=== PATIENT | female | born 1955 | race Caucasian/White ===

== ENCOUNTER 2016-10-30 20:07 | Emergency (ER) | payer OTHER ==
[~2016-10-30] VITALS: Ht 167.6 cm; Wt 84.4 kg
[2016-10-30] MEDS ORDERED: APAP650 PO (21:16)
[2016-10-30] MEDS ORDERED: KLOR-CON 1010 MEQ PO (21:16)
[2016-10-30] MEDS ORDERED: PERCOCET PO (21:16)
[2016-10-30] MEDS ORDERED: NICOTINE TRANSD21 M1 (21:16)
[2016-10-30] MEDS ORDERED: 8 HOUR C500 MG PO (21:17)
[2016-10-30] MEDS ORDERED: NEURONTIN600 MG PO (21:17)
[2016-10-30] MEDS ORDERED: GEODON60 MG PO (21:17)
[2016-10-30] MEDS ORDERED: MIRALAX17 GM PO (21:18)
[2016-10-30] MEDS ORDERED: CENTRUM SILVER1 EAC4 PO (21:18)
[2016-10-30] MEDS ORDERED: ASPIR 8181 MG PO (21:18)
[2016-10-30] MEDS ORDERED: LASIX 20 MG TAB20 MG PO (21:18)
[2016-10-30] MEDS ORDERED: DIAZEPAM 5 MG5 M1 PO (21:19)
[2016-10-30] MEDS ORDERED: TOPAMAX 100 MG100 MG PO (21:19)
[2016-10-30] MEDS ORDERED: ACCUNEB SO1.25 MG/1 INH (21:20)
[2016-10-30 23:06] VITALS: BP 105/47
== END 2016-10-30 23:06 ==
LOC: ER 20:07
DX: T83.038A Leakage of other urinary catheter, initial encounter (principal); G82.20 Paraplegia, unspecified; F17.210 Nicotine dependence, cigarettes, uncomplicated; Z88.0 Allergy status to penicillin; X58.XXXA Exposure to other specified factors, initial encounter; Y93.89 Activity, other specified; Y92.89 Other specified places as the place of occurrence of the external cause; Y99.8 Other external cause status